=== PATIENT | female | born 1955 | race Caucasian/White ===

== ENCOUNTER → 2018-09-12 | Outpatient (CLI) | payer MEDICARE ==
--- NOTE | 2018-09-12 10:41 | RAD ---
Right lower extremity venous doppler ultrasound History: Right lower extremity swelling Comparison: None Findings: Multiple grayscale, color, and duplex spectral analysis sonographic images were acquired of the right lower extremity veins to evaluate for the presence of DVT. There is normal phasicity. Normal compression, color-flow, and augmentation is demonstrated from the right common femoral to the popliteal veins. There is normal color flow of the proximal greater saphenous and profunda femoris veins. There is normal color flow of segments of the calf veins. Impression: 1. There is no evidence of deep venous thrombosis from the right common femoral to the popliteal veins. Electronically signed by: Chance Gillette MD (09/12/2018 10:39 AM) [facility]
== END | disposition home or self-care (01) ==
LOC: US 09:39
PROVIDERS: ATTEND Physician Assistant Medical
DX: M79.89 Other specified soft tissue disorders (principal)
CPT/HCPCS: 93971

== ENCOUNTER → 2019-10-18 | Outpatient (CLI) | payer OTHER ==
--- NOTE | 2019-10-18 11:05 | RAD ---
CT ABDOMEN PELVIS WO CONTRAST History: Reason: RIGHT FLANK PAIN / Spl. Instructions: PT COULDN'T PUT ARMS UP / History: Technique: Noncontrast examination of the abdomen and pelvis. Coronal and sagittal reconstructions were performed. Exposure: One or more of the following individualized dose reduction techniques were utilized for this examination: 1. Automated exposure control 2. Adjustment of the mA and/or kV according to patient size 3. Use of iterative reconstruction technique. Comparison: None Findings: Lower chest: Linear bibasilar atelectasis. Abdomen and pelvis: Inflammatory changes adjacent to the pancreas and extending into the right paracolic recess with pancreatic edema most prominent at pain chronic head and neck. Inflammatory changes also extend within the left upper abdomen with fluid along the posterior spleen. No peripancreatic fluid collections. Mild duodenal wall thickening adjacent to the inflammatory changes, likely reactive. Cholelithiasis. Mildly dilated common bile duct and possible intrahepatic biliary ductal dilatation versus periportal edema although evaluation is degraded by beam hardening artifact from patient's arms. The spleen is enlarged measures 15 cm. Left adrenal adenoma measures 1.7 x 1.4 cm. Left renal cyst. No follow-up imaging is recommended per consensus recommendations based on imaging criteria.. No hydronephrosis. Decompressed urinary bladder with focus of gas. Colonic diverticulosis. Normal appendix. No evidence of bowel obstruction. Atheromatous plaque throughout the nonaneurysmal abdominal aorta and branch vessels. Small retroperitoneal lymph nodes and periportal lymph nodes, likely reactive. Prior hysterectomy. Bones: Heterogeneous appearance of the pelvis and sacrum with hemorrhages appearance of the thoracal lumbar spine and proximal femurs although too lesser degree. Multilevel lumbar spondylosis. Impression: 1. Acute pancreatitis with inflammatory changes extending into the right paracolic gutter. 2. Mild common bile duct and probable intrahepatic bile duct dilatation. Recommend correlation with biliary lab values. Ultrasound and/or MRCP can further evaluate 3. Cholelithiasis. 4. Splenomegaly. 5. Focus of gas within the urinary bladder. Recommend correlation for recent instrumentation. 6. Left adrenal adenoma. Electronically signed by: Alexi Figueroa DO (10/18/2019 11:02 AM) [id number]
== END ==
LOC: PMG 09:01
PROVIDERS: ATTEND Physician Assistant Medical
DX: D35.02 Benign neoplasm of left adrenal gland (principal); K80.20 Calculus of gallbladder without cholecystitis without obstruction; R16.1 Splenomegaly, not elsewhere classified; K57.30 Diverticulosis of large intestine without perforation or abscess without bleeding; K85.90 Acute pancreatitis without necrosis or infection, unspecified; K83.8 Other specified diseases of biliary tract
CPT/HCPCS: 74176